=== PATIENT | female | born 1970 | race African-American/Black ===

== ENCOUNTER 2016-06-28 07:02 | Day surgery (SDC) | payer MEDICAID ==
[~2016-06-28] VITALS: Ht 175.3 cm; Wt 75.8 kg
[2016-06-28 08:06] LABS: BASOPHILS 0.2 % (0.0-2.0); EOSINOPHILS 2.1 % (0-7); HEMATOCRIT 33.1 % (36.0-48.0); HEMOGLOBIN 10.9 g/dL (12-16); IMMATURE GRANULOCYTES 0.2 % (0-5); LYMPHOCYTES 33.8 % (15-50); MCHC 32.9 g/dL (31.0-37.0); MCV 97.1 fL (80.0-100.0); MEAN PLATELET VOLUME 9.1 fL (7.4-10.4); MONOCYTES 7.9 % (2-11); NEUTROPHILS 55.8 % (40-80); RBC 3.41 10x6/uL (4.00-5.40); RDW 12.5 % (11.5-14.5); WBC 8.5 10x3/uL (4.8-10.8)
[2016-06-28 08:19] VITALS: BP 118/69; Ht 175.3 cm; Wt 75.8 kg
[2016-06-28 08:25] LABS: PLATELET COUNT 295 10x3/uL (130-400)
--- NOTE | 2016-06-28 08:41 | HP ---
PATIENT: JUWAN WHITESIDE MEDICAL RECORD: [id number] ACCOUNT: [id number] LOCATION:[facility] : 74 ADMISSION DATE: 06/28/16 HISTORY AND PHYSICAL EXAMINATION HISTORY OF PRESENT ILLNESS: The patient is a 45-year-old white female with abnormal bleeding, myomas, pelvic pain. She desires endometrial ablation for relief of abnormal bleeding. She has undergone endometrial biopsy with benign results. Pelvic ultrasound revealing multiple myomas and uterine length of 10 cm, endometrial biopsies, read as weakly proliferative. PAST MEDICAL HISTORY: DRUG ALLERGIES: None known. CURRENT MEDICATIONS: Depo-Provera for control. FAMILY HISTORY: Noncontributory. REVIEW OF SYSTEMS: No chest pain, no dyspnea. Positive for abnormal bleeding. SOCIAL HISTORY: The patient is single. Occasional ethanol use. Smoker. PHYSICAL EXAMINATION: VITAL SIGNS: Weight is 172 pounds, blood pressure 110/60. HEENT: Unremarkable. LUNGS: Clear. HEART: Regular rate and rhythm. ABDOMEN: Soft. PELVIC: Reveals uterus consistent with the ultrasound measurement. No adnexal masses. Normal Pap smear. EXTREMITIES: No cyanosis, clubbing or edema. NEUROLOGIC: Grossly intact. IMPRESSION: Abnormal uterine bleeding and myomas. I have discussed with the patient the treatment with hysterectomy versus endometrial ablation. She desires endometrial ablation. She understands that results may vary with myomas, desires this rather than a long recuperated process that would be necessary with hysterectomy. All questions answered. Discussed risks of procedure, anesthesia, infection, bleeding, perforation, injury to other organs. PLAN: Endometrial ablation in the a.m. HTA versus the NovaSure. TRANSINT:[id number] Voice Confirmation ID: [id number] DOCUMENT ID: [id number] RAMIRO DUVAL MD at 0841 CC: [id number] DICTATION DATE: 06/27/16 1319 PODIATRY PROFESSOR: 06/27/16 1432 [id number] [place] [address]
[2016-06-28 08:52] LABS: HCG URINE NEGATIVE (NEGATIVE)
--- NOTE | 2016-06-28 08:53 | NUR ---
0850 OR NOTIFIED OF NEED FOR TORODOL 1 HOUR PRIOR TO SURGERY, STATED WILL CALL WHEN TO GIVE.
--- NOTE | 2016-06-28 15:51 | NUR ---
1545 DC INSTS. REVIEWED, VOICED UNDERSTANDING, RX'S PERCOCET AND MOTRIN GIVEN, RELEASED IN WC WITH ESCORT. 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
--- NOTE | 2016-07-03 08:08 | OP ---
PATIENT NAME: JUWAN WHITESIDE MEDICAL RECORD: [id number] :74 [facility] ADMISS[facility] DATE: SURGEON: TIERA DUVAL MD DATE OF OPERATION: 06/28/2016 PREOPERATIVE DIAGNOSES: Menorrhagia and myomas. POSTOPERATIVE DIAGNOSES: Menorrhagia and myomas. PROCEDURE: Hydrothermal endometrial ablation. SURGEON: Tiera Duval MD ANESTHESIA: General. FINDINGS: A 10-week size myomatous uterus. ESTIMATED BLOOD LOSS: Minimal. COMPLICATIONS OF SURGERY: None. OPERATIVE NOTE: The patient was taken to the OR and under adequate general anesthesia, prepped and draped in the usual manner for vaginal procedures with legs in floating boot Jose Angel stirrups. The [facility] hydrothermal endometrial ablation device was used to perform this procedure. The tenaculum was placed on the cervix. The cervix was progressively dilated to accept the hydrothermal device, which was then inserted and under protocol, the endometrium was evaluated. No new findings and a 10-minute hydrothermal burn was achieved, followed by cool down. At the end of procedure, all instruments were removed according to protocol and the patient went to the recovery area in good condition with no bleeding. TRANSINT:[id number] Voice Confirmation ID: [id number] DOCUMENT ID: [id number] TIERA DUVAL MD at 0808 CC: [id number] DICTATION DATE: 06/28/16 1301 FUND ACCOUNTING MANAGER: 06/28/16 1613 [facility] 06/28/[address] [address]
== END 2016-06-28 15:45 | disposition home or self-care (01) ==
LOC: D.OPS 07:02 → D.PAN 08:30 → D.OPS 09:00 → D.PAN 10:00 → D.OPS 10:00
PROVIDERS: Obstetrics & Gynecology
DX: N92.0 Excessive and frequent menstruation with regular cycle (principal); D26.1 Other benign neoplasm of corpus uteri; F17.200 Nicotine dependence, unspecified, uncomplicated

== ENCOUNTER 2016-08-10 14:00 | Emergency (ER) | payer MEDICAID ==
[2016-06-28 08:19] VITALS: BMI 24.7
[2016-08-10 14:53] LABS: BASOPHILS 0.2 % (0.0-2.0); EOSINOPHILS 2.6 % (0-7); HEMOGLOBIN 12.9 g/dL (12-16); IMMATURE GRANULOCYTES 0.2 % (0-5); LYMPHOCYTES 8.7 % (15-50); MCH 32.3 pg (26.0-34.0); MCHC 33.1 g/dL (31.0-37.0); MCV 97.5 fL (80.0-100.0); MEAN PLATELET VOLUME 9.3 fL (7.4-10.4); MONOCYTES 9.5 % (2-11); NEUTROPHILS 78.8 % (40-80); PLATELET COUNT 307 10x3/uL (130-400); RDW 13.1 % (11.5-14.5); WBC 10.6 10x3/uL (4.8-10.8)
[2016-08-10 15:55] LABS: APPEARANCE CLOUDY (CLEAR); BILIRUBIN NEGATIVE (NEGATIVE); COLOR YELLOW (YELLOW); GLUCOSE NEGATIVE (NEGATIVE); KETONE NEGATIVE (NEGATIVE); LEUKOCYTE ESTERASE 1+ (NEGATIVE); NITRITE NEGATIVE (NEGATIVE); PROTEIN TRACE mg/dL (NEGATIVE); UROBILINOGEN NORMAL (NORMAL)
[2016-08-10 15:56] LABS: BACTERIA MANY /hpf (NONE SEEN); RED CELLS - URINE 0-5 /hpf (0-5)
== END 2016-08-10 16:50 | disposition home or self-care (01) ==
LOC: D.ER 14:00
PROVIDERS: Emergency Medicine
DX: B34.9 Viral infection, unspecified (principal)

== ENCOUNTER 2017-09-11 11:46 | Emergency (ER) | payer MEDICAID ==
[2016-06-28 08:19] VITALS: BMI 24.7
== END 2017-09-11 17:07 | disposition home or self-care (01) ==
LOC: D.ER 11:46
DX: S80.02XA Contusion of left knee, initial encounter (principal); V43.52XA Car driver injured in collision with other type car in traffic accident, initial encounter; Y93.89 Activity, other specified; Y92.410 Unspecified street and highway as the place of occurrence of the external cause; M25.462 Effusion, left knee

== ENCOUNTER → 2017-10-26 12:23 | Outpatient (CLI) | payer MEDICAID ==
[2016-06-28 08:19] VITALS: BMI 24.7
== END | disposition home or self-care (01) ==
LOC: D.MRI 12:23
DX: S80.02XD Contusion of left knee, subsequent encounter (principal)

== ENCOUNTER 2019-02-11 16:15 | Emergency (ER) | payer SELFPAY ==
[~2019-02-11] VITALS: Ht 175.3 cm; Wt 77.3 kg
[2019-02-11 16:25] VITALS: Ht 175.3 cm; Wt 77.3 kg
[2019-02-11 16:56] LABS: APPEARANCE CLEAR (CLEAR); BILIRUBIN NEGATIVE (NEGATIVE); COLOR YELLOW (YELLOW); GLUCOSE NEGATIVE (NEGATIVE); KETONE NEGATIVE (NEGATIVE); NITRITE NEGATIVE (NEGATIVE); PROTEIN NEGATIVE (NEGATIVE); UROBILINOGEN NORMAL (NORMAL)
[2019-02-11 16:59] LABS: BASOPHILS 0.1 % (0-2); EOSINOPHILS 1.8 % (0-7); HEMATOCRIT 38.8 % (36.0-48.0); HEMOGLOBIN 12.8 g/dL (12-16); IMMATURE GRANULOCYTES 0.3 % (0-5); LYMPHOCYTES 33.4 % (15-50); MCH 33.1 pg (26.0-34.0); MCV 100.3 fL (80.0-100.0); MEAN PLATELET VOLUME 9.3 fL (7.4-10.4); MONOCYTES 8.4 % (2-11); PLATELET COUNT 328 10x3/uL (130-400); RBC 3.87 10x6/uL (4.00-5.40); WBC 10.6 10x3/uL (4.8-10.8)
[2019-02-11 17:13] LABS: ALBUMIN 3.9 g/dL (3.4-5.0); ALKALINE PHOSPHATASE 69 U/L (46-116); ALT (SGPT) 21 U/L (10-68); BILIRUBIN - TOTAL 0.58 mg/dL (0.2-1.3); CALC OSMOLALITY 279 mosm/kg (275-300); CALCIUM 9.2 mg/dL (8.5-10.1); CARBON DIOXIDE 28.5 mmol/L (21.0-32.0); CHLORIDE - SERUM 105 mmol/L (98-107); CREATININE - SERUM 0.8 mg/dL (0.6-1.3); GLUCOSE 88 mg/dL (74-106); POTASSIUM - SERUM 3.9 mmol/L (3.5-5.1); PROTEIN - SERUM 7.4 g/dL (6.4-8.2); SODIUM 141 mmol/L (136-145); UREA NITROGEN 12 mg/dL (7-18); eGFR NON AFRICAN AMERICAN 82 mL/min (90-120)
[2019-02-11 17:16] LABS: AMYLASE - SERUM 72 U/L (25-115); LIPASE 161 U/L (73-393)
[2019-02-11 17:21] LABS: TROPONIN-I < 0.017 ng/mL (0.000-0.060)
[2019-02-11] MEDS ORDERED: ACETAMINOPHEN500 M1 PO (18:25)
[2019-02-11] MEDS ORDERED: CYCLOBENZAPRINE10 MG PO (18:25)
[2019-02-11] MEDS ORDERED: IBUPROFEN800 MG PO (18:25)
[2019-02-11 19:30] VITALS: BP 138/81
== END 2019-02-11 19:20 | disposition home or self-care (01) ==
LOC: D.ER 16:15
PROVIDERS: Family Medicine
DX: R10.32 Left lower quadrant pain (principal)

== ENCOUNTER 2019-03-14 09:00 | Outpatient (CLI) | payer MEDICAID ==
[2019-02-11 16:25] VITALS: BMI 25.1
[~2019-03-14 09:00] MED LIST: ACETAMINOPHEN500 M1 PO; CYCLOBENZAPRINE10 MG PO; IBUPROFEN800 MG PO
== END 2019-03-14 10:00 | disposition home or self-care (01) ==
LOC: D.MAMMO 09:00
PROVIDERS: ATTEND Nurse Practitioner
DX: Z12.31 Encounter for screening mammogram for malignant neoplasm of breast (principal)

== ENCOUNTER → 2019-04-02 11:30 | Outpatient (CLI) | payer MEDICAID ==
[2019-02-11 16:25] VITALS: BMI 25.1
== END | disposition home or self-care (01) ==
LOC: D.MAMMO 08:30
PROVIDERS: ATTEND Nurse Practitioner
DX: R92.2 Inconclusive mammogram (principal)

== ENCOUNTER → 2019-11-28 08:28 | Outpatient (CLI) | payer MEDICAID ==
[2019-02-11 16:25] VITALS: BMI 25.1
== END | disposition home or self-care (01) ==
LOC: D.US 08:28
PROVIDERS: ATTEND Nurse Practitioner
DX: R10.9 Unspecified abdominal pain (principal); Z87.898 Personal history of other specified conditions

== ENCOUNTER → 2019-12-05 10:36 | Outpatient (CLI) | payer MEDICAID ==
[2019-02-11 16:25] VITALS: BMI 25.1
== END | disposition home or self-care (01) ==
LOC: D.CT 10:36
PROVIDERS: ATTEND Nurse Practitioner
DX: D18.09 Hemangioma of other sites (principal)

== ENCOUNTER → 2019-12-29 10:47 | Outpatient (CLI) | payer MEDICAID ==
[2019-02-11 16:25] VITALS: BMI 25.1
== END | disposition home or self-care (01) ==
LOC: D.MRI 10:47
PROVIDERS: ATTEND Family Medicine
DX: D18.09 Hemangioma of other sites (principal)

== ENCOUNTER 2020-10-14 05:00 | Day surgery (SDC) | payer BC ==
[2020-10-11 10:59] LABS: BASOPHILS 0.6 % (0-2); HEMATOCRIT 39.6 % (36.0-48.0); HEMOGLOBIN 13.1 g/dL (12-16); LYMPHOCYTES 37.5 % (15-50); MCHC 33.1 g/dL (31.0-37.0); MCV 99.9 fL (80.0-100.0); MEAN PLATELET VOLUME 7.1 fL (7.4-10.4); MONOCYTES 8.2 % (2-11); NEUTROPHILS 52.7 % (40-80); PLATELET COUNT 364 10x3/uL (130-400); RBC 3.96 10x6/uL (4.00-5.40); RDW 13.5 % (11.5-14.5)
[~2020-10-14] VITALS: Ht 175.3 cm; Wt 79.8 kg
--- NOTE | ~2020-10-14 | OP ---
PATIENT NAME: JUWAN WHITESIDE MEDICAL RECORD: [id number] :74 LOCATION:[facility] ADMISSION DATE: SURGEON: NNII FLORES DO DATE OF OPERATION: 10/14/2020 PREOPERATIVE DIAGNOSES: Abnormal uterine bleeding, fibroid uterus, history of ablation. POSTOPERATIVE DIAGNOSES: Abnormal uterine bleeding, fibroid uterus, history of ablation. PRIMARY SURGEON: Nini Flores DO ANESTHESIA: LMA. PROCEDURE: Hysteroscopy, D&C. FINDINGS: Uterus sounded to 7 cm. On hysteroscopy, cavity with scar tissue, which was not really expanded with saline influx. No polyps noted. Fluid deficit of 180 mL. Bag suction not working, so we used normal suction to calculate fluid difference. SPECIMENS: Endometrial curetting. ESTIMATED BLOOD LOSS: 10 mL. IV FLUIDS: Per anesthesia. URINE OUTPUT: 100 mL clear yellow urine via red rubber catheter. COMPLICATIONS: None. DESCRIPTION OF PROCEDURE: Prior to procedure, risks of surgery including bleeding, pain, infection, damage to surrounding structures, uterine perforation, VTE and reoperation discussed with the patient. Also reviewed, depending on extent of scar tissue and prior ablation may not be able to re-ablate. The patient expressed understanding. Consent signed in the office. All questions answered preoperatively and the patient was taken to the operating room where anesthesia was administered and found to be adequate. She was prepped and draped in normal sterile fashion in the dorsal lithotomy position. Speculum was placed. A tenaculum used to grasp the anterior lip of the cervix and cervix dilated to accommodate Aveta hysteroscope. Hysteroscope demonstrated scar tissue and no polyps or large amount of abnormal tissue noted. Hysteroscope removed and cervix further dilated to accommodate a small sharp curette, curetted in a clockwise fashion until gritty feeling was noted. Curette removed. Hemostasis adequate. Tenaculum removed. Silver nitrate applied. Due to scar tissue, ablation would not be a safe next step so procedure terminated after a D&C portion. Hemostasis was adequate. Instruments removed from vagina. The patient was awakened and tolerated the procedure well, was stable, awakened and taken to recovery room in stable condition. TRANSINT:[id number] Voice Confirmation ID: [id number] DOCUMENT ID: [id number] OPERATIVE REPORT [id number] JUWAN WHITESIDE NINI FLORES DO CC: [id number] DICTATION DATE: 10/18/20 0855 ELECTORAL OFFICER: 10/18/20 1205 [facility] 10/14/20 [facility] [address] [place] [address]
[~2020-10-14 05:00] MED LIST changes: +ZYRTEC10 MG PO
[2020-10-14 05:30] LABS: HCG URINE NEGATIVE (NEGATIVE)
[2020-10-14 05:33] VITALS: BP 129/76; Ht 175.3 cm; Wt 79.8 kg
--- NOTE | 2020-10-14 08:02 | NUR ---
FLUID DEFICIT OF 180ML NOTED; SURGEON AWARE. FLUID SUCTIONED INTO MEASURABLE CONTAINMENT. NOTED,ROSLYN,RN
--- NOTE | 2020-10-14 09:00 | NUR ---
THIS NURSE CALLED OR, SPOKE TO MAL TO NOTIFY DR PARMAR THAT THERE ARE NO DISCHARGE ORDERS IN THE COMPUTER AND PATIENT IS IN PAIN AND HAS NO PRESCRIPTION FOR MEDICATION.
--- NOTE | 2020-10-14 09:35 | NUR ---
0935 DC TEACHING COMPLETE, PT VERBALIZED UNDERSTANDING, VOIDED TWO TIMES AFTER SURGERY. NO PRESCRIPTION IN CHART. 0955 PIV REMOVED, CATHETER INTACT, PT GETTING DRESSED. 1005 PT DC'D VIA WC ACCOMPANIED BY CITLALI TO POV WITH ALL BELONGINGS AND DC PACKET. DRIVING
== END 2020-10-14 10:05 | disposition home or self-care (01) ==
LOC: D.OPS 05:00
PROVIDERS: ATTEND Obstetrics & Gynecology
DX: N93.9 Abnormal uterine and vaginal bleeding, unspecified (principal); D25.9 Leiomyoma of uterus, unspecified